=== PATIENT | female | born 1995 | race Caucasian/White ===

== ENCOUNTER 2024-01-24 22:19 | Inpatient (IN) | payer BC, SELFPAY ==
[2024-01-24 22:29] VITALS: BMI 29.6
[2024-01-24] MEDS: LR 1000 IV ×2 (22:45→23:54)
[2024-01-24 22:59] LABS: % Basophils 0.3 % (0-2); % Eosinophils 0.7 % (0-6); % Immature Granulocytes 0.5 % (0-0.5); % Lymphocytes 18.6 % (20.5-51.1); % Monocytes 9.8 % (1.7-9.3); % Neutrophils 70.1 % (42.2-75.2); Absolute Eosinophils 0.1 10^3/uL (0-0.7); Absolute Immature Granulocytes 0.1 10^3/uL (0-0.05); Absolute Lymphocytes 2.5 10^3/uL (1.2-3.4); Absolute Monocytes 1.3 10^3/uL (0.1-0.6); Absolute Neutrophils 9.3 10^3/uL (1.4-6.5); Hematocrit 32.2 % (37.0-47.0); Hemoglobin 11.2 g/dL (12.0-16.0); Mean Corp Hgb Conc. 34.8 g/dL (33.0-37.0); Mean Corpuscular Hgb 29.3 pg (27.0-31.0); Mean Corpuscular Volume 84.3 fL (81.0-99.0); Mean Platelet Volume 10.2 fL (7.4-10.4); Nucleated Red Blood Cells % 0 %; Platelet Count 199 10^3/uL (130-400); Red Blood Cell Count 3.82 10^6/uL (4.20-5.40); Red Cell Dist. Width 13.1 % (11.5-14.5); White Blood Cell Count 13.2 10^3/uL (4.8-10.8)
[2024-01-24 23:31] VITALS: BP 131/82
[2024-01-24] MEDS: SUBLIMAZE 100 MCG EPIDURAL (23:35)
[2024-01-24] MEDS: FENTANYL/BUPIVACAINE 100 EPIDURAL (23:35)
[2024-01-25] MEDS: CYTOTEC 800 MCG RECTAL (03:15)
[2024-01-25] MEDS: PRENATAL PLUS 1 TABLET PO (08:23)
[2024-01-25] MEDS: LEXAPRO 5 MG PO (08:23)
[2024-01-25] MEDS: SENOKOT-S 1 TABLET PO (08:23)
[2024-01-25 13:07] LABS: % Basophils 0.3 % (0-2); % Eosinophils 0.5 % (0-6); % Immature Granulocytes 0.4 % (0-0.5); % Lymphocytes 15.8 % (20.5-51.1); % Monocytes 8.6 % (1.7-9.3); % Neutrophils 74.4 % (42.2-75.2); Absolute Eosinophils 0.1 10^3/uL (0-0.7); Absolute Immature Granulocytes 0.1 10^3/uL (0-0.05); Absolute Lymphocytes 2.3 10^3/uL (1.2-3.4); Absolute Monocytes 1.3 10^3/uL (0.1-0.6); Absolute Neutrophils 10.8 10^3/uL (1.4-6.5); Hematocrit 34.9 % (37.0-47.0); Hemoglobin 12.2 g/dL (12.0-16.0); Mean Corpuscular Hgb 29.5 pg (27.0-31.0); Mean Corpuscular Volume 84.5 fL (81.0-99.0); Mean Platelet Volume 10.1 fL (7.4-10.4); Nucleated Red Blood Cells % 0 %; Platelet Count 187 10^3/uL (130-400); Red Blood Cell Count 4.13 10^6/uL (4.20-5.40); Red Cell Dist. Width 13.1 % (11.5-14.5); White Blood Cell Count 14.5 10^3/uL (4.8-10.8)
[2024-01-25 13:23] LABS: ALT (SGPT) 17 U/L (0-35); AST (SGOT) 39 U/L (14-36); Albumin 2.9 g/dl (3.5-5.0); Alkaline Phosphatase 230 U/L (38-126); Blood Urea Nitrogen 9 mg/dl (7-17); Calcium 9.2 mg/dl (8.4-10.2); Carbon Dioxide 23 mmol/L (22-30); Chloride 107 mmol/L (98-107); Estimated Creatinine Clearance > 125 ml/min; Glucose 72 mg/dl (70-99); Potassium 4.1 mmol/L (3.5-5.1); Sodium 134 mmol/L (135-145); Total Bilirubin 0.5 mg/dl (0.2-1.3); Total Protein 5.3 g/dl (6.3-8.2); eGFR > 60.00
[2024-01-26] MEDS: MOTRIN 600 MG PO ×2 (00:31→07:59)
[2024-01-26] MEDS: LEXAPRO 5 MG PO (07:58)
[2024-01-26] MEDS: SENOKOT-S 1 TABLET PO (07:59)
[2024-01-26] MEDS: PRENATAL PLUS 1 TABLET PO (07:59)
[2024-01-28 11:12] LABS: Syphilis/T. pallidum Ab Reflex Negative (Negative)
== END 2024-01-26 13:31 | disposition home or self-care (01) | DRG 807 ==
LOC: LDRP 22:19
PROVIDERS: Obstetrics & Gynecology; ADMITTING PHYSICIAN Obstetrics & Gynecology; FAMILY PHYSICIAN Nurse Practitioner
PROC: 0W8NXZZ Division of Female Perineum, External Approach (ICD-10-PCS; 2024-01-25)
PROC: 10E0XZZ Delivery of Products of Conception, External Approach (ICD-10-PCS; 2024-01-25)
DX: O42.02 Full-term premature rupture of membranes, onset of labor within 24 hours of rupture (principal); Z37.0 Single live birth; Z3A.38 38 weeks gestation of pregnancy; O76 Abnormality in fetal heart rate and rhythm complicating labor and delivery; O69.81X0 Labor and delivery complicated by cord around neck, without compression, not applicable or unspecified; O66.0 Obstructed labor due to shoulder dystocia; O99.344 Other mental disorders complicating childbirth; F32.A Depression, unspecified; F41.9 Anxiety disorder, unspecified; R03.0 Elevated blood-pressure reading, without diagnosis of hypertension; Z88.0 Allergy status to penicillin
CPT/HCPCS: 36415; 80053; 85025; 86780; 86850; 86900; 86901